=== PATIENT | female | born 1995 | race Caucasian/White ===

== ENCOUNTER 2017-07-31 03:39 | Emergency (ER) | payer BC ==
[2017-07-31 03:58] VITALS: O2SAT 100
--- NOTE | 2017-07-31 04:03 | ERPHSYRPT ---
- History of Present Illness Time Seen by Provider: 07/31/17 03:47 Source: patient Exam Limitations: no limitations Physician History: FOR THE PAST 1.5 WEEKS PT HAS HAD LLQ ABDOMINAL PAIN; FOR THE PAST 13 HOURS PRISCILLA -ANAL PAIN. LAST BM WAS 13 HOURS AGO & [facility] BROWN WITHOUT BLOOD. PT DENIES CHEST PAIN, SHORTNESS OF AIR, VOMITING, FEVER. Allergies/Adverse Reactions: No Known Drug Allergies Allergy (Verified 07/31/17 03:58) - Review of Systems Respiratory: No Dyspnea Cardiac: No Chest Pain Abdominal/Gastrointestinal: Abdominal Pain (LLQ), Other (PRISCILLA-ANAL PAIN), No Vomiting All Other Systems: Reviewed and Negative - Female History Hx Now: (UNKNOWN) - Nursing Vital Signs Nursing Vital Signs: Initial Vital Signs Temperature 98.1 F 07/31/17 03:46 Pulse Rate 83 07/31/17 03:46 Blood Pressure 146/78 07/31/17 03:46 O2 Sat by Pulse Oximetry 100 07/31/17 03:46 Pain Scale Pain Intensity 1 - Physical Exam General Appearance: alert Eye Exam: PERRL/EOMI Ears, Nose, Throat Exam: TMs normal, pharynx normal, moist mucous membranes Neck Exam: normal inspection Respiratory Exam: lungs clear Cardiovascular Exam: normal heart sounds Gastrointestinal/Abdomen Exam: soft, normal bowel sounds, tenderness (MILD LLQ ABDOMINAL TENDERNESS) Rectal Exam: normal rectal tone, hemorrhoids (1 CM DIAMETER TENDER EXTERNAL HEMORRHOID NOT THROMBOSED(ER NURSE PRESENT DURING EXAM).) Back Exam: normal range of motion Extremity Exam: normal inspection, No pedal edema Neurologic Exam: alert, cooperative Skin Exam: warm, dry - Course Nursing assessment & vital signs reviewed: Yes Ordered Tests: Active Orders 24 hr Category Date Time Status ABDOMEN AND PELVIS W/0 CONTRAS [CT] Stat Exams 07/31/17 03:56 Taken AMYLASE Stat Lab 07/31/17 04:45 Completed CBC W DIFF Stat Lab 07/31/17 04:45 Completed CMP Stat Lab 07/31/17 04:45 Completed HCG QUALITATIVE,SERUM Stat Lab 07/31/17 04:45 Completed LIPASE Stat Lab 07/31/17 04:45 Completed MAG [MAGNESIUM] Stat Lab 07/31/17 04:45 Completed Occult Blood,Stool Other Stat Lab 07/31/17 04:05 Completed UA W/RFX UR CULTURE Stat Lab 07/31/17 04:05 Completed Lab/Rad Data: Laboratory Result Diagrams 07/31/17 04:45 07/31/17 04:45 Laboratory Results 07/31/17 07/31/17 07/31/17 Range/Units 04:45 04:45 04:45 WBC (4.0-10.5) K/mm3 RBC (4.1-5.4) M/mm3 Hgb (12.0-16.0) gm/dl Hct (35-47) % MCV (78-100) fl MCH (26-32) pg MCHC (32-36) g/dl RDW (11.5-14.0) % Plt Count (150-450) K/mm3 MPV (6-9.5) fl Gran % (36.0-66.0) % Eos # (Auto) (0-0.5) Absolute Lymphs (auto) (1.0-4.6) Absolute Monos (auto) (0.0-1.3) Lymphocytes % (24.0-44.0) % Monocytes % (0.0-12.0) % Eosinophils % (0.00-5.0) % Basophils % (0.0-0.4) % Absolute Granulocytes (1.4-6.9) Basophils # (0-0.4) Sodium 140 (137-145) mmol/L Potassium 4.5 (3.5-5.1) mmol/L Chloride 105 (98-107) mmol/L Carbon Dioxide 27 (22-30) mmol/L Anion Gap 13.2 (5-15) MEQ/L BUN 21 H (7-17) mg/dL Creatinine 0.62 (0.52-1.04) mg/dL Estimated GFR > 60 ML/MIN Glucose 99 (74-106) mg/dL Calcium 9.3 (8.4-10.2) mg/dL Magnesium 2.2 (1.6-2.3) mg/dL Total Bilirubin 0.20 (0.2-1.3) mg/dL AST 14 (14-36) U/L ALT 11 (0-35) U/L Alkaline Phosphatase 49 (38-126) U/L Serum Total Protein 7.6 (6.3-8.2) g/dL Albumin 4.4 (3.5-5.0) g/dL Amylase 60 (30-110) U/L Lipase 53 (23-300) U/L Serum , Qual NEGATIVE (Negative) Ur Collection Type Urine Color (YELLOW) Urine Appearance (CLEAR) Urine pH (5-6) Ur Specific Stowell (1.005-1.025) Urine Protein (Negative) Urine Ketones (NEGATIVE) Urine Blood (0-5) Karson/ul Urine Nitrite (NEGATIVE) Urine Bilirubin (NEGATIVE) Urine Urobilinogen (0-1) mg/dL Ur Leukocyte Esterase (NEGATIVE) Urine Culture Reflexed (NO) Urine Glucose (NEGATIVE) mg/dL Stool Occult Blood (Negative) Specimen Received 07/31/17 07/31/17 07/31/17 Range/Units 04:45 04:05 04:05 WBC 5.2 (4.0-10.5) K/mm3 RBC 4.28 (4.1-5.4) M/mm3 Hgb 12.7 (12.0-16.0) gm/dl Hct 38.2 (35-47) % MCV 89.3 (78-100) fl MCH 29.7 (26-32) pg MCHC 33.2 (32-36) g/dl RDW 12.9 (11.5-14.0) % Plt Count 280 (150-450) K/mm3 MPV 9.3 (6-9.5) fl Gran % 59.5 (36.0-66.0) % Eos # (Auto) 0.09 (0-0.5) Absolute Lymphs (auto) 1.57 (1.0-4.6) Absolute Monos (auto) 0.42 (0.0-1.3) Lymphocytes % 30.3 (24.0-44.0) % Monocytes % 8.1 (0.0-12.0) % Eosinophils % 1.7 (0.00-5.0) % Basophils % 0.4 (0.0-0.4) % Absolute Granulocytes 3.08 (1.4-6.9) Basophils # 0.02 (0-0.4) Sodium (137-145) mmol/L Potassium (3.5-5.1) mmol/L Chloride (98-107) mmol/L Carbon Dioxide (22-30) mmol/L Anion Gap (5-15) MEQ/L BUN (7-17) mg/dL Creatinine (0.52-1.04) mg/dL Estimated GFR ML/MIN Glucose (74-106) mg/dL Calcium (8.4-10.2) mg/dL Magnesium (1.6-2.3) mg/dL Total Bilirubin (0.2-1.3) mg/dL AST (14-36) U/L ALT (0-35) U/L Alkaline Phosphatase (38-126) U/L Serum Total Protein (6.3-8.2) g/dL Albumin (3.5-5.0) g/dL Amylase (30-110) U/L Lipase (23-300) U/L Serum , Qual (Negative) Ur Collection Type VOID Urine Color STRAW (YELLOW) Urine Appearance CLEAR (CLEAR) Urine pH 6.0 (5-6) Ur Specific Stowell 1.010 (1.005-1.025) Urine Protein NEGATIVE (Negative) Urine Ketones NEGATIVE (NEGATIVE) Urine Blood NEGATIVE (0-5) Karson/ul Urine Nitrite NEGATIVE (NEGATIVE) Urine Bilirubin NEGATIVE (NEGATIVE) Urine Urobilinogen NORMAL (0-1) mg/dL Ur Leukocyte Esterase NEGATIVE (NEGATIVE) Urine Culture Reflexed NO (NO) Urine Glucose NEGATIVE (NEGATIVE) mg/dL Stool Occult Blood NEGATIVE (Negative) Specimen Received 07/31/2017 - Departure Time of Disposition: 06:28 Departure Disposition: Home Clinical Impression: ABDOMINAL PAIN, EXTENAL HEMORRHOID Condition: Stable Critical Care Time: No Referrals: Provider,Unknown [Primary Care Provider] - Instructions: Hemorrhoids (DC) Additional Instructions: FOLLOW UP WITH PRIVATE DOCTOR TOMORROW. Prescriptions: Naproxen [Naprosyn] 500 mg PO [id number] PRN #20 tablet PRN Reason: Pain
[2017-07-31 04:49] LABS: BASOPHIL % 0.4 % (0.0-0.4); Basophil (Absolute #) 0.02 (0-0.4); Eosinophil % 1.7 % (0.00-5.0); Eosinophil (Absolute #) 0.09 (0-0.5); Granulocyte Absolute (ANC) 3.08 (1.4-6.9); Granulocytes % 59.5 % (36.0-66.0); Hematocrit 38.2 % (35-47); Hemoglobin 12.7 gm/dl (12.0-16.0); Lymphocyte (Absolute #) 1.57 (1.0-4.6); Lymphocytes % 30.3 % (24.0-44.0); Mean Cell Volume 89.3 fl (78-100); Mean Corpuscular Hemoglobin 29.7 pg (26-32); Mean Corpuscular Hgb Concent. 33.2 g/dl (32-36); Mean Platelet Volume 9.3 fl (6-9.5); Monocyte (Absolute #) 0.42 (0.0-1.3); Monocytes % 8.1 % (0.0-12.0); Platelet Count 280 K/mm3 (150-450); Red Blood Count 4.28 M/mm3 (4.1-5.4); Red Cell Distribution Width 12.9 % (11.5-14.0); White Blood Count 5.2 K/mm3 (4.0-10.5)
[2017-07-31 05:18] LABS: Appearance CLEAR (CLEAR); Bilirubin NEGATIVE (NEGATIVE); Blood NEGATIVE Ery/ul (0-5); Glucose NEGATIVE (NEGATIVE); Ketones NEGATIVE (NEGATIVE); Leukocyte Esterase NEGATIVE (NEGATIVE); Nitrite NEGATIVE (NEGATIVE); Protein,Urine Dip NEGATIVE (Negative); Urobilinogen NORMAL mg/dL (0-1)
[2017-07-31 05:19] LABS: ALBUMIN 4.4 g/dL (3.5-5.0); ALKALINE PHOSPHATASE 49 U/L (38-126); AMYLASE 60 U/L (30-110); ANION GAP 13.2 MEQ/L (5-15); BLOOD UREA NITROGEN 21 mg/dL (7-17); CHLORIDE 105 mmol/L (98-107); Calcium 9.3 mg/dL (8.4-10.2); Carbon Dioxide 27 mmol/L (22-30); Creatinine 1 0.62 mg/dL (0.52-1.04); Glucose 99 mg/dL (74-106); LIPASE 53 U/L (23-300); Potassium 4.5 mmol/L (3.5-5.1); SGOT/AST 14 U/L (14-36); SGPT/ALT 11 U/L (0-35); SODIUM 140 mmol/L (137-145); Total Protein 7.6 g/dL (6.3-8.2)
[2017-07-31 06:26] VITALS: BP 118/60; PULSE 69
--- NOTE | 2017-07-31 09:00 | XRAY ---
Indication: Left lower quadrant and rectal pain. Hemorrhoids. Multiple contiguous axial images obtained through the abdomen and pelvis without contrast as ordered. Comparison: None Lung bases are clear. Heart is not enlarged. Noncontrasted stomach and bowel loops appear nonobstructed. Normal appendix. No free fluid/air. Remaining liver, gallbladder, pancreas, spleen, adrenal glands, kidneys, ureters, bladder, uterus, and aorta appear unremarkable for noncontrast exam. Osseous structures intact. Impression: Negative CT abdomen/pelvis without contrast exam. Comment: Preliminary interpretation was made by [facility]. No critical discrepancy. CT DI 14.07
== END 2017-07-31 06:32 | disposition home or self-care (01) ==
LOC: ED 03:39
DX: R10.32 Left lower quadrant pain (principal); K64.4 Residual hemorrhoidal skin tags
CPT/HCPCS: 36415; 74176; 80053; 81002; 82150; 82272; 83690; 83735; 84703; 85025; 99283; 99284